=== PATIENT | female | born 1985 | race Caucasian/White ===

== ENCOUNTER → 2021-03-14 | Outpatient (CLI) | payer OTHER ==
[~2021-03-14] MED LIST: AMOX500; CEPH500 PO; CODACE60; IBUP800 PO; OXYACE5T PO; PRED10 PO
[2021-03-17 03:11] LABS: CHLAMYDIA TRACHOMATIS, NAA Negative (Negative)
== END | disposition home or self-care (01) ==
LOC: LAB SHORT 16:00
PROVIDERS: Obstetrics & Gynecology
DX: Z34.81 Encounter for supervision of other normal pregnancy, first trimester (principal); R82.90 Unspecified abnormal findings in urine
CPT/HCPCS: 87086; 87491; 87591